=== PATIENT | male | born 1955 | race Caucasian/White ===

== ENCOUNTER 2019-09-24 05:30 | Emergency (ER) | payer OTHER ==
[~2019-09-24] VITALS: Ht 182.9 cm; Wt 99.8 kg
[2019-09-24] MEDS ORDERED: GRALISE600 MG PO (05:42)
[2019-09-24] MEDS ORDERED: PROAIR HFA8.5 GM INH (05:42)
[2019-09-24 06:11] LABS: ABSOLUTE EOSINOPHILS 0.1 thou/uL (0.0-0.7); ABSOLUTE LYMPHOCYTES 3.1 thou/uL (0.8-5.3); ABSOLUTE MONOCYTES 0.6 thou/uL (0.0-1.2); BASOPHILS 0.4 %; EOSINOPHILS 1.5 %; HEMATOCRIT 47.2 % (42.0-52.0); HEMOGLOBIN 16.1 gm/dL (14.0-18.0); LYMPHOCYTES 39.1 %; MCH 30.1 pg (26.0-34.0); MCHC 34.1 g/dL (28.0-37.0); MCV 88.1 fL (80.0-100.0); MONOCYTES 7.6 %; MPV 9.8 fl. (7.2-11.1); NUCLEATED RBCS 0 /100WBC; PLATELET COUNT* 132 thou/uL (150-400); POLYS 51.4 %; RBC 5.35 mil/uL (4.50-6.00); RDW-CV 14.4 % (10.5-14.5); WBC 7.8 thou/uL (4.0-11.0)
[2019-09-24 06:18] LABS: CALCIUM 8.5 mg/dL (8.5-10.1); CREATININE 0.9 mg/dL (0.6-1.3)
[2019-09-24 07:36] LABS: URINE BILIRUBIN NEGATIVE (Negative); URINE BLOOD NEGATIVE (Negative); URINE CLARITY CLEAR; URINE COLOR YELLOW; URINE GLUCOSE-RANDOM NEGATIVE (Negative); URINE KETONES NEGATIVE (Negative); URINE LEUKOCYTES-REFLEX NEGATIVE (Negative); URINE NITRITE-REFLEX NEGATIVE (Negative); URINE PROTEIN NEGATIVE (Negative); URINE UROBILINOGEN 0.2 E.U./dl (0.2-1.0)
[2019-09-24] MEDS ORDERED: MELOXICAM15 MG PO (09:01)
[2019-09-24] MEDS ORDERED: HYDROCODON-ACE1 EAC7 PO (09:01)
[2019-09-24 09:05] LABS: AMP/METHAMP Negative (Negative); BARBITURATES Negative (Negative); BENZODIAZEPINES Negative (Negative); COCAINE Negative (Negative); METHADONE Negative (Negative); OPIATES POSITIVE (Negative); PCP Negative (Negative); THC Negative (Negative)
[2019-09-24 09:35] VITALS: BP 100/72
== END 2019-09-24 09:35 | disposition home or self-care (01) ==
LOC: M.ERS 05:30
PROVIDERS: Emergency Medicine; Personal Emergency Response Attendant
DX: N28.1 Cyst of kidney, acquired (principal); M99.53 Intervertebral disc stenosis of neural canal of lumbar region; J44.9 Chronic obstructive pulmonary disease, unspecified; G62.9 Polyneuropathy, unspecified; Z87.442 Personal history of urinary calculi; Z88.8 Allergy status to other drugs, medicaments and biological substances; Z86.19 Personal history of other infectious and parasitic diseases; Z79.899 Other long term (current) drug therapy

== ENCOUNTER 2019-10-06 10:56 | Emergency (ER) | payer OTHER ==
[~2019-10-06] VITALS: Ht 182.9 cm; Wt 95.3 kg
[~2019-10-06 10:56] MED LIST: GRALISE600 MG PO; HYDROCODON-ACE1 EAC7 PO; MELOXICAM15 MG PO; PROAIR HFA8.5 GM INH
[2019-10-06 11:25] LABS: URINE BILIRUBIN NEGATIVE (Negative); URINE BLOOD NEGATIVE (Negative); URINE CLARITY CLEAR; URINE COLOR YELLOW; URINE GLUCOSE-RANDOM NEGATIVE (Negative); URINE KETONES NEGATIVE (Negative); URINE LEUKOCYTES-REFLEX NEGATIVE (Negative); URINE NITRITE-REFLEX NEGATIVE (Negative); URINE PROTEIN NEGATIVE (Negative); URINE SPECIFIC GRAVITY 1.025 (1.005-1.030); URINE UROBILINOGEN 0.2 E.U./dl (0.2-1.0)
[2019-10-06 11:44] LABS: ABSOLUTE MONOCYTES 0.3 thou/uL (0.0-1.2); ABSOLUTE NEUTROPHILS 6.9 thou/uL (1.6-8.1); BASOPHILS 0.1 %; HEMATOCRIT 46.9 % (42.0-52.0); HEMOGLOBIN 16.2 gm/dL (14.0-18.0); LYMPHOCYTES 12.1 %; MCH 29.7 pg (26.0-34.0); MCHC 34.5 g/dL (28.0-37.0); MONOCYTES 3.6 %; NUCLEATED RBCS 0 /100WBC; PLATELET COUNT* 191 thou/uL (150-400); POLYS 84.2 %; RBC 5.45 mil/uL (4.50-6.00); RDW-CV 14.3 % (10.5-14.5); WBC 8.2 thou/uL (4.0-11.0)
[2019-10-06 11:48] LABS: CALCIUM 8.4 mg/dL (8.5-10.1); CREATININE 1.1 mg/dL (0.6-1.3); POTASSIUM 3.8 mmol/L (3.5-5.1)
[2019-10-06 11:53] LABS: ALBUMIN 3.4 g/dL (3.4-5.0); TOTAL BILIRUBIN 0.5 mg/dL (<0.1-1.0); TOTAL PROTEIN 7.3 g/dL (6.4-8.2)
[2019-10-06] MEDS ORDERED: FLEXERIL PO (12:36)
[2019-10-06] MEDS ORDERED: NORCO 7.5-3251 EACH PO (12:36)
[2019-10-06 13:32] VITALS: BP 145/86
--- NOTE | 2019-10-06 16:02 | EKG ---
[place] [address] ELECTROCARDIOGRAM REPORT Name: PANCHO HARRELL Room: [facility]#: [id number] Admission: 10/06/19 Attend Phys: Discharge: 10/06/19 Date of : 55 Date of Service: 10/06/19 1114 Report #: [id number] THIS REPORT FOR: //name// [facility] ED Test Date: 2019-10-06 Test Time: 11:14:16 Pat Name: PANCHO HARRELL Department: Room: Gender: Vice President Of Finance: [place] : 1955 Requested By: Gladys Graves Order Number: [id number] MD: Todd Vega Measurements Intervals [place] Rate: 111 P: 79 MT: 161 QRS: 45 QRSD: 98 T: 64 QT: 319 QTc: 434 Interpretive Statements Sinus tachycardia Borderline low voltage, extremity leads Baseline wander in lead(s) II No previous ECG available for comparison Electronically Signed On 10-06-2019 16:01:50 CDT by Todd Vega [email or web address] <ELECTRONICALLY SIGNED> By: Todd Vega MD, [facility] 10/06/19 1601 1114 1114 Todd Vega MD, [facility] /EPI
== END 2019-10-06 13:33 | disposition home or self-care (01) ==
LOC: M.ERS 10:56
PROVIDERS: Nurse Practitioner Family
DX: M54.5 Low back pain (principal); J44.9 Chronic obstructive pulmonary disease, unspecified; G62.9 Polyneuropathy, unspecified; F17.210 Nicotine dependence, cigarettes, uncomplicated; Z20.828 Contact with and (suspected) exposure to other viral communicable diseases; Z87.442 Personal history of urinary calculi; Z88.8 Allergy status to other drugs, medicaments and biological substances